=== PATIENT | female | born 1995 | race Caucasian/White ===

== ENCOUNTER → 2017-11-26 | Outpatient (REF) | payer OTHER | LOC: M LAB REF 17:00 | DX: Z34.82 Encounter for supervision of other normal pregnancy, second trimester (principal) ==

== ENCOUNTER → 2018-02-13 | Outpatient (CLI) | payer OTHER, MEDICAID | LOC: M SMT 14:55 | DX: O32.1XX0 Maternal care for breech presentation, not applicable or unspecified (principal); Z36.89 Encounter for other specified antenatal screening; Z3A.25 25 weeks gestation of pregnancy; O35.8XX0 Maternal care for other (suspected) fetal abnormality and damage, not applicable or unspecified ==

== ENCOUNTER → 2018-05-13 | Outpatient (CLI) | payer OTHER, MEDICAID ==
[~2018-05-13] MED LIST: COLA100C5 PO; IBUP80TA PO; PERCOCET PO; PREN1TAB26 PO
--- NOTE | 2018-05-14 03:40 | REP ---
Clinical: Growth evaluation. Comparison: 02/13/2018 . Findings: Examination demonstrates a single live intrauterine in transverse (head to maternal left) presentation. motion is identified by technologist. Placenta is noted anterior and grade grade 1 without evidence for placenta previa or abruption. Amniotic fluid volume is normal. Cervix appears closed. No evidence for nuchal cord. Gestational age by LMP 38 weeks 2 days with SINA 05/25/2018 . Gestational age by current measurements 37 weeks 0 days with SINA 06/03/2018 . FHR equals 153 beats per minute. BPD 9.4 cm 38 weeks 1 day HC 33.9 cm 39 weeks 0 days AC 32.9 cm 36 weeks 6 days FL 7.0 cm 36 weeks 0 days HC/AC ratio 1.03 Amniotic fluid index: 20.8 cm (7.3 - 23.5) Umbilical cord SD ratio: 1.93 (1.60 - 2.60) Estimated weight 3093 grams ( 38th percentile based on age by LMP and first ultrasound ). Impression: Single live intrauterine in transverse lie. Estimated weight within normal range based on age by LMP and first ultrasound. Electronically Signed by Aaron Hunt MD 05/14/2018 03:31 A
== END ==
LOC: M SMT 13:07
PROVIDERS: ATTEND Advanced Practice Midwife
DX: Z36.9 Encounter for antenatal screening, unspecified (principal); O26.843 Uterine size-date discrepancy, third trimester; Z3A.37 37 weeks gestation of pregnancy

== ENCOUNTER 2018-05-21 07:52 | Inpatient (IN) | payer OTHER, MEDICAID ==
[2018-05-21] VITALS (8 sets, daily range): BP systolic 108–129; BP diastolic 49–71
[~2018-05-21] VITALS: Ht 160 cm; Wt 139.0 kg
[~2018-05-21 07:52] MED LIST changes: -COLA100C5 PO; -IBUP80TA PO; -PERCOCET PO
[2018-05-21 08:43] LABS: HEMATOCRIT 34.4 % (36.0-47.0); HEMOGLOBIN 11.4 g/dl (12.0-15.5); MEAN CORPUSCULAR HGB CONC 33.1 g/dl (32.0-36.5); MEAN CORPUSCULAR VOLUME 96.6 fl (80.0-96.0); PLATELET COUNT, AUTOMATED 312 10^3/uL (150-450); RED BLOOD COUNT 3.56 10^6/uL (4.00-5.40); WHITE BLOOD COUNT 12.1 10^3/uL (4.0-10.0)
[2018-05-21] MEDS ORDERED: dexameTHASONE 4 MG/ML 1ML VIAL (J1100) As Ordered ONE (08:59)
[2018-05-21] MEDS ORDERED: ONDANSETRON 4MG/2ML VIAL (J2405) As Ordered ONE ×2 (08:59→12:02)
[2018-05-21] MEDS ORDERED: OXYTOCIN INJ 10 UNITS/ML VIAL (J2590) As Ordered ONE (08:59)
[2018-05-21] MEDS ORDERED: KETOROLAC 60 MG/2 ML VIAL (J1885) As Ordered ONE (09:00)
[2018-05-21] MEDS ORDERED: MORPHINE PRES-FREE INJ 10 MG/10 ML VIAL (J2274) As Ordered ONE (09:00)
[2018-05-21] MEDS ORDERED: fentaNYL 100 MCG/2 ML INJECTION (J3010) As Ordered ONE (09:00)
[2018-05-21] MEDS ORDERED: ceFAZolin 2 GM/D5W 50 ML IV BAG (J0690 PER 500MG) As Ordered ONE (09:50)
[2018-05-21] MEDS ORDERED: LACTATED RINGER'S 1000 ML IV STA (09:50)
[2018-05-21] MEDS ORDERED: BICITRA 30ML SOLN UDC As Ordered ONE (09:51)
[2018-05-21] MEDS ORDERED: BICITRA 30ML SOLN UDC PO ONE (10:00)
[2018-05-21] MEDS ORDERED: LR 1,000 ML IV SCH ×2 (10:00→12:00)
--- NOTE | 2018-05-21 10:06 | NUR ---
Physician Progress Note 22yo G1 at 39+3 weeks EGA. Admitted this morning for a scheduled primary low transverse section secondary to a diagnosis of malpresentation. Denies VB/LOF/uctx. +FM. Normotensive, normal HR, afebrile USseals upon admission revealed cephalic presentation. SVE: 1/long/high/ballotable. I explained to the patient that a delivery is not currently medically-indicated. I recommended awaiting spontaneous onset of labor over a delivery. The patient expressed concern about an unstable presentation if she were to continue with expectant management. She was offered an induction of labor today to address this concern. The patient insists on proceeding with a primary delivery. We discussed the risks of delivery, particularly in the context of her morbid obesity. I highlighted the risks of infection, hemorrhage, and venous thromboembolism. She is still insisting on delivery despite these risks. She was counseled and consented regarding a delivery upon maternal request. Preparations for the OR being made. Dr. Hawkins, DO FACOG
[2018-05-21] MEDS ORDERED: PHENYLephrine HCL 500 MCG/5 ML (100MCG/ML) SYRINGE (J2370) As Ordered ONE (10:35)
--- NOTE | 2018-05-21 11:42 | NUR ---
Operative Note Date of procedure: 05/21/18 Procedure: Primary low-transverse section Anesthesia: Spinal Preoperative diagnosis: 1. 39+2 weeks gestation 2. Unstable presentation 3. delivery upon maternal request Postoperative diagnosis: 1. 39+2 weeks gestation 2. Unstable presentation 3. delivery upon maternal request Primary surgeon: Mike Hawkins D.O., Piyush Hernández Literary Writer: Gerard Solorio CNM (essential for surgical site exposure and assistance with delivery of baby through hysterotomy) Estimated blood loss: 500 ml IV fluids administered: 2000 ml crystalloid Drains: Costello catheter. Urine output: 125 ml [place] data: Apgars 8 and 9. Birthweight 2990g, 6lbs 9oz. Preoperative/prophylactic antibiotics: Ancef 2 g IV (given within 30 minutes prior to surgical start time). Intraoperative findings: Normal uterus, evidence of polycystic ovaries bilaterally. Specimen(s): none Procedure: The patient was counseled and consented on the risks, benefits, indications and alternatives of the procedure. Informed consent was obtained and placed in the c perez. She was taken to the operating room with an IV running. She was placed on the operating table. Spinal anesthesia was administered without any difficulty and found to be adequate. She was placed in the dorsal supine position with a leftward tilt. Sequential compression devices were placed on the lower extremities. A Costello catheter was placed under sterile conditions. She was sterilely prepped and draped. A surgical timeout was performed per protocol. Spinal anesthesia was again found to be adequate. Using the 10 blade a Pfannenstiel incision was performed. The 10 blade was used to dissect down to the level of the rectus sheath fascia. The rectus sheath fas cindy was incised at the midline, and the fascial incision was extended with Ortiz scissors. Destiney clamps were used to grasp the superior and inferior aspect of the fascial incision and the rectus muscle bellies were dissected off sharply and bluntly. The midline was identified and the rectus muscle bellies were manually . The peritoneum was identified and clamped with hemostats and elevated. The peritoneum was then incised with Metzenbaum scissors. Entry into the intraperitoneal cavity was achieved. The peritoneal opening was extended with manual stretch . There was good visualization of both the bladder and the lower uterine segment. The bladder retractor was placed. The vesicouterine peritoneum was dissected with Metzenbaum scissors and blunt dissection. Bladder retractor was repositioned. A low transverse uterine incision was made with a new 10 blade. The hysterotomy was extended with manual stretch. The amniotic sac was protruding and then artificially ruptured. Copious, clear amniotic fluid was noted. The baby's head delivered through the hysterotomy with ease. The remainder of the body delivered with ease. The cord was doubly clamped and cut and the baby was handed off to awaiting care. See data above. The placenta was manually removed and noted to be fully intact. The uterus was exteriorized. The intrauterine cavity was cleared of all clot and debris with a laparotomy sponge. The hysterotomy was closed with 0 Vicryl in running, locked fashion. A second imbricating closure was performed over the initial layer closure using 0 Vicryl The hysterotomy was noted to be hemostatic. The posterior cul-de-sac was irrigated and cleared of all clot and debris. The uterus was replaced back into the abdomen. The paracolic gutters were cleared of all clot and debris with damp laparotomy sponges. The hysterotomy is reinspected and noted to be hemostatic. Sponge, needle and instrument counts were correct. The peritoneum was closed with 3-0 Vicryl in running fashion. The rectus muscle bellies were reapproximated with 3-0 Vicryl with a series of interrupted sutures. The rectus muscle bellies were noted to be hemostatic. The fascia was closed with 0 Vicryl in running fashion. Sponge, needle and instrument counts were again correct. The subcutaneous layer was irrigated. Small subcutaneous bleeders were cauterized with Bovie. The subcutaneous layer was reapproximated with 3-0 Vicryl in running fashion. The skin was closed with 3-0 Monocryl in subcuticular fashion. A bandage was placed over the closed incision. The final sponge, instrument and needle count was correct. She tolerated the entire procedure very well. She was transferred to the PACU in good and stable condition. Dr. Mike Hawkins D.O., F.[email or web address].ChristG
[2018-05-21] MEDS ORDERED: OXYTOCIN 30 UNITS IN 0.9% NaCl 500ML IV BAG (J2590) As Ordered ONE (11:53)
[2018-05-21] MEDS ORDERED: OXYTOCIN DRIP 30 UNITS in APPROPRIATE DILUENT 1 EA IV SCH (11:56)
[2018-05-21] MEDS ORDERED: ONDANSETRON 4MG/2ML VIAL (J2405) IV PRN ×3 (12:00→13:45)
[2018-05-21] MEDS ORDERED: PROMETHAZINE 25 MG TAB PO PRN (12:00)
[2018-05-21] MEDS ORDERED: RHOGAM 300 MCG (1500 IU) INJ (J2790) IM SCH (12:00)
[2018-05-21] MEDS ORDERED: PERCOCET 5MG/325MG TAB PO PRN ×2 (12:00)
[2018-05-21] MEDS ORDERED: NALBUPHINE HCL 10 MG/ML AMP (J2300) IV PRN ×2 (12:00→13:45)
[2018-05-21] MEDS ORDERED: MEASLES,MUMPS,RUBELLA VACCINE INJ (MMR-II) (90707) SC SCH (12:00)
[2018-05-21] MEDS ORDERED: fentaNYL 100 MCG/2 ML INJECTION (J3010) IV PRN (12:00)
[2018-05-21] MEDS: LR 1,000 ML IV SCH ×2 (13:13→20:00)
[2018-05-21] MEDS ORDERED: NALOXONE INJ 0.4 MG/1 ML VIAL (J2310) IV PRN ×2 (13:45)
[2018-05-21] MEDS ORDERED: diphenhydrAMINE INJ 50MG/ML VIAL (J1200) IV PRN (13:45)
[2018-05-21] MEDS ORDERED: METOCLOPRAMIDE INJ 10MG/2ML VIAL (J2765) IV PRN (13:45)
[2018-05-21] MEDS: KETOROLAC 30 MG/ML VIAL (J1885) IV SCH ×2 (16:55→23:07)
[2018-05-21] MEDS: DOCUSATE SODIUM 100 MG CAP PO SCH (20:05)
[2018-05-22 01:57] VITALS: BP 97/56
[2018-05-22] MEDS ORDERED: PERCOCET PO (03:14)
[2018-05-22] MEDS ORDERED: IBUP80TA PO (03:15)
[2018-05-22] MEDS ORDERED: COLA100C5 PO (03:16)
[2018-05-22] MEDS: KETOROLAC 30 MG/ML VIAL (J1885) IV SCH (05:00)
[2018-05-22] MEDS: LR 1,000 ML IV SCH (05:09)
[2018-05-22 05:39] VITALS: BP 100/59
--- NOTE | 2018-05-22 06:00 | NUR ---
Postoperative Day 1 Status post primary low transverse section, uncomplicated. Subjective Pain is well controlled. Lochia is decreasing and minimal. Voiding spontaneously. Tolerating a regular diet. Ambulating without any assistance. Denies any subjective fever, chills, nausea, vomiting, headache, visual changes, shortness of breath, chest pain. Objective Vitals: Normotensive, normal heart rate, afebrile, adequate urine output. Heart: regular, rate, and rhythm. no murmurs/gallops/rubs Lungs: clear to auscultation bilaterally, no wheezes/crackles/rales/ronchi Abd: soft, nontender, nondistended, uterine fundus is 2cm below umbilicus and firm Incision: clean, dry, intact Ext: no significant edema, nontender, negative Priyanka's bilaterally. Preoperative H/H: 11.4/34.4 Postoperative H/H: 9.0/27.2 Assessment/Plan: Postoperative day 1 status post primary low transverse section. Recovering well. Hemodynamically stable, afebrile, good pain control. -Routine care -Discharge to home tomorrow -Routine infectious, fever, pain, and bleeding precautions reviewed -Incision/wound care precautions reviewed. Dr. Mike Hawkins, Sade.O., F.A.C.O.G.
[2018-05-22 07:14] LABS: HEMATOCRIT 27.2 % (36.0-47.0); MEAN CORPUSCULAR HEMOGLOBIN 32.6 pg (27.0-33.0); MEAN CORPUSCULAR HGB CONC 33.1 g/dl (32.0-36.5); MEAN CORPUSCULAR VOLUME 98.6 fl (80.0-96.0); PLATELET COUNT, AUTOMATED 241 10^3/uL (150-450); RED BLOOD COUNT 2.76 10^6/uL (4.00-5.40); WHITE BLOOD COUNT 10.3 10^3/uL (4.0-10.0)
[2018-05-22] MEDS: DOCUSATE SODIUM 100 MG CAP PO SCH ×2 (08:24→20:41)
[2018-05-22] MEDS: PRENATAL VITAMINS CHEWABLE TABLET PO SCH (08:24)
[2018-05-22] MEDS ORDERED: ADACEL/BOOSTRIX VACCINE (DIPHTH/PERTUSS/ACELL/TETANUS)0.5ML SYR (90715) IM ONE (09:00)
[2018-05-22 10:05] VITALS: BP 98/55
[2018-05-22] MEDS: IBUPROFEN 800 MG TAB PO SCH ×2 (13:22→20:43)
[2018-05-22 14:00] VITALS: BP 121/66
[2018-05-22 18:00] VITALS: BP 109/64
[2018-05-22 22:28] VITALS: BP 114/55
[2018-05-23 02:35] VITALS: BP 89/40
[2018-05-23] MEDS: IBUPROFEN 800 MG TAB PO SCH (04:48)
[2018-05-23 06:45] VITALS: BP 99/46
--- NOTE | 2018-05-23 06:50 | DSES ---
DATE OF ADMISSION: 05/21/2018 DATE OF DISCHARGE: DISCHARGE DIAGNOSIS: Primary section postoperative day two, stable condition. SURGEON: Dr. Mike Hawkins; assistant analyst, Alison Solorio HISTORY: Mariangel is a 22-year-old 1, para 1-0-0-1 now. She was admitted to labor and delivery for primary section due to unstable lie and noted to be vertex upon arrival. The patient was counseled, refused induction of labor and expectant management for spontaneous labor and desired an elective primary section. Surgery was uncomplicated. Estimated blood loss 500 mL. She delivered a live female weighing 2990 grams or 6 pounds 9 ounces and Apgars were 8 and 9. Her postoperative course has been uncomplicated. She has been out of bed for self care, dada care and visits to the intensive care where the is admitted. Her pain has been well controlled with by mouth pain medications. She is voiding without difficulty and passing flatus. She is tolerating by mouth fluids and a regular diet. She does desire discharge today. LABORATORY DATA: Preoperative CBC, 05/21/2018, hemoglobin 11.4, hematocrit 34.4 and platelets 312. Postoperative CBC, 05/22/2018, hemoglobin 9.0, hematocrit 27.2, platelets 241. OBJECTIVE: Temperature 97.5, pulse 83, respirations 16, blood pressure 89/40. She is alert and oriented. She appears comfortable. Breasts are soft, nontender. Abdomen is fundus firm at one fingerbreadth below umbilicus. Her dressing is intact. There is no new drainage or edema noted. Her perineum is intact. Lochia rubra scant. DISPOSITION: The plan is to discharge the patient home today. Prescriptions for Percocet have been E-prescribed by Dr. Mike Hawkins. I did review discharge instructions with the patient that include breast care, incision care, dada care, pelvic rest, activity and lifting restrictions, access to care, and danger signs which to report to her provider. She needs to be seen for a 2-week incision check and an 8-week visit.
[2018-05-23] MEDS ORDERED: PRENTAB9 PO (10:02)
[2018-05-23] MEDS: PRENATAL VITAMINS CHEWABLE TABLET PO SCH (10:21)
[2018-05-23] MEDS: DOCUSATE SODIUM 100 MG CAP PO SCH (10:22)
== END 2018-05-23 12:15 | disposition home or self-care (01) | DRG 787 ==
LOC: M LDI 07:52 → M OBS 13:49
PROVIDERS: ADMIT Obstetrics & Gynecology; ATTEND Obstetrics & Gynecology
PROC: 10D00Z1 Extraction of Products of Conception, Low, Open Approach (ICD-10-PCS; principal; 2018-05-21 09:30)
DX: O32.0XX0 Maternal care for unstable lie, not applicable or unspecified (principal); Z68.41 Body mass index [BMI] 40.0-44.9, adult; Z3A.39 39 weeks gestation of pregnancy; O99.214 Obesity complicating childbirth; E66.01 Morbid (severe) obesity due to excess calories; Z37.0 Single live birth